=== PATIENT | female | born 2000 | race African-American/Black ===

== ENCOUNTER 2020-12-19 16:42 | Emergency (ER) | payer MEDICAID ==
[~2020-12-19] VITALS: Ht 175.3 cm; Wt 74.8 kg
[2020-12-19] MEDS ORDERED: IPRATROPIUM NEB FS 0.5 MG/2.5 ML AMPUL.NEB NEB ONE (18:00)
[2020-12-19] MEDS ORDERED: ALBUTEROL FS 2.5 MG/3 ML VIAL.NEB NEB ONE (18:00)
[2020-12-19] MEDS ORDERED: predniSONE 20 MG TABLET PO ONE (18:00)
--- NOTE | 2020-12-19 18:14 | NUR ---
COVID SWAB DONE AND SENT TO LAB
[2020-12-19] MEDS ORDERED: predniSONE 20 MG TABLET ONE (18:16)
--- NOTE | 2020-12-19 18:30 | NUR ---
BIBS FROM HOME TO ER BED 6. AAOX4. NOT IN RESP DISTRESS, BREATHING EVEN AND UNLABORED. AMBULATORY. CAME IN FOR SOB WHICH HAS BEEN GOING ON AND OFF FOR THE PAST MONTH. PT REPORTS THAT SHE HAVE ASTHMA AND HER INHALER IS NOT HELPING. PT IS NOTED WHEEZING. PROVIDER WAS AT THE BEDSIDE. ORDERS RECEIVED, NOTED AND CARRIED OUT.
[2020-12-19] MEDS ORDERED: ALBUTEROL FS 2.5 MG/3 ML VIAL.NEB ONE (18:31)
[2020-12-19] MEDS ORDERED: IPRATROPIUM NEB FS 0.5 MG/2.5 ML AMPUL.NEB ONE (18:31)
[2020-12-19] MEDS ORDERED: ALBU18HF2 INH (19:00)
[2020-12-19] MEDS ORDERED: CLOT15CR27 TP (19:00)
[2020-12-19] MEDS ORDERED: PRED20TA PO (19:00)
--- NOTE | 2020-12-19 19:16 | NUR ---
PT MARKED FOR DISCHARGE. JUST FINISHING BREATHING TREATMENT
--- NOTE | 2020-12-19 19:21 | NUR ---
Patient discharged to home in stable condition. Written and verbal after care instructions given. Patient verbalizes understanding of instruction. Pt ambulatory with a steady gait
[2020-12-19 19:24] VITALS: BP 113/63
== END 2020-12-19 19:24 | disposition home or self-care (01) ==
LOC: ER 16:46
DX: J45.909 Unspecified asthma, uncomplicated (principal); Z20.822 Contact with and (suspected) exposure to COVID-19; Z76.0 Encounter for issue of repeat prescription
CPT/HCPCS: 71045; 87426; 94644; 99285; C9803; J7512

== ENCOUNTER 2020-12-21 17:33 | Emergency (ER) | payer MEDICAID ==
[~2020-12-21] VITALS: Ht 167.6 cm; Wt 68.0 kg
[~2020-12-21 17:33] MED LIST: ALBU18HF2 INH; CLOT15CR27 TP; PRED20TA PO
[2020-12-21 17:43] VITALS: BP 116/85
[2020-12-21] MEDS ORDERED: DEXAMETHASONE SOD PHOSPHATE 10 MG/ML VIAL IV ONE (18:00)
[2020-12-21] MEDS ORDERED: IPRATROPIUM NEB FS 0.5 MG/2.5 ML AMPUL.NEB NEB ONE (18:00)
[2020-12-21] MEDS ORDERED: ALBUTEROL FS 2.5 MG/3 ML VIAL.NEB CONTNEB ONE (18:00)
[2020-12-21] MEDS ORDERED: Magnesium 1GM/D5W 100ML PREMIX 200 ML IV ONE (18:00)
[2020-12-21] MEDS ORDERED: ALBUTEROL FS 2.5 MG/3 ML VIAL.NEB ONE (18:04)
[2020-12-21] MEDS ORDERED: IPRATROPIUM NEB FS 0.5 MG/2.5 ML AMPUL.NEB ONE (18:04)
[2020-12-21] MEDS ORDERED: Magnesium 1GM/D5W 100ML PREMIX 100 ML IV ONE (18:12)
[2020-12-21] MEDS ORDERED: DEXAMETHASONE SOD PHOSPHATE 10 MG/ML VIAL ONE (18:12)
[2020-12-21] MEDS ORDERED: PRED20TA PO (19:45)
[2020-12-21] MEDS ORDERED: FLUT10.62 INH (19:45)
[2020-12-21] MEDS ORDERED: ALBU6.7H9 INH (19:45)
--- NOTE | 2020-12-21 19:54 | NUR ---
MD PRESCRIPTIONS HANDED OVER TO PT.
--- NOTE | 2020-12-21 19:56 | NUR ---
IV removed. Catheter intact and site benign. Pressure and 4x4 applied to site. No bleeding noted.
--- NOTE | 2020-12-21 20:12 | NUR ---
Patient discharged to home in stable condition,ambulatory with steady gait. Written and verbal after care instructions given. Patient verbalizes understanding of instruction.
== END 2020-12-21 20:17 | disposition home or self-care (01) ==
LOC: ER 17:40
DX: J45.901 Unspecified asthma with (acute) exacerbation (principal); Z79.899 Other long term (current) drug therapy; Z91.14 Patient's other noncompliance with medication regimen
CPT/HCPCS: 71045; 84703; 94644; 96365; 96375; 99285; J1100; J3475

== ENCOUNTER 2021-12-05 18:37 | Emergency (ER) | payer MEDICAID ==
[~2021-12-05] VITALS: Ht 172.7 cm; Wt 80.3 kg
[~2021-12-05 18:37] MED LIST changes: +ALBU6.7H9 INH; +FLUT10.62 INH
--- NOTE | 2021-12-05 19:00 | NUR ---
BIBS "I have asthma- Cough/feel SOB/tight pain in chest area". AMBULATORY, AAXO4, BREATHING EVEN AND UNLABORED SATURATING AT 95%RA
[2021-12-05] MEDS ORDERED: IPRATROPIUM NEB FS 0.5 MG/2.5 ML AMPUL.NEB NEB ONE (19:30)
[2021-12-05] MEDS ORDERED: predniSONE 20 MG TABLET PO ONE (19:30)
[2021-12-05] MEDS ORDERED: ALBUTEROL FS 2.5 MG/3 ML VIAL.NEB NEB ONE (19:30)
[2021-12-05] MEDS ORDERED: predniSONE 20 MG TABLET ONE (19:31)
[2021-12-05] MEDS ORDERED: ALBU18HF2 INH (20:03)
[2021-12-05] MEDS ORDERED: PRED20TA PO (20:03)
[2021-12-05] MEDS ORDERED: IPRATROPIUM NEB FS 0.5 MG/2.5 ML AMPUL.NEB ONE (20:12)
[2021-12-05] MEDS ORDERED: ALBUTEROL FS 2.5 MG/3 ML VIAL.NEB ONE (20:12)
--- NOTE | 2021-12-05 20:56 | NUR ---
Patient discharged to home in stable condition. Written and verbal after care instructions given. Patient verbalizes understanding of instruction.
[2021-12-05 20:57] VITALS: BP 115/70
== END 2021-12-05 20:58 | disposition home or self-care (01) ==
LOC: ER 19:22
DX: J45.909 Unspecified asthma, uncomplicated (principal); Z79.899 Other long term (current) drug therapy
CPT/HCPCS: 99283; 94640; J7512

== ENCOUNTER 2022-02-03 18:10 | Emergency (ER) | payer MEDICAID ==
[~2022-02-03] VITALS: Ht 177.8 cm; Wt 81.2 kg
[2022-02-03 18:33] VITALS: BP 108/52
[2022-02-03] MEDS ORDERED: IPRATROPIUM NEB FS 0.5 MG/2.5 ML AMPUL.NEB NEB ONE (19:00)
[2022-02-03] MEDS ORDERED: ALBUTEROL FS 2.5 MG/3 ML VIAL.NEB NEB ONE (19:00)
[2022-02-03] MEDS ORDERED: predniSONE 20 MG TABLET PO ONE (19:00)
--- NOTE | 2022-02-03 19:27 | NUR ---
CALLED RT FOR BREATHING TX
[2022-02-03] MEDS ORDERED: IPRATROPIUM NEB FS 0.5 MG/2.5 ML AMPUL.NEB ONE (19:32)
[2022-02-03] MEDS ORDERED: ALBUTEROL FS 2.5 MG/3 ML VIAL.NEB ONE (19:32)
[2022-02-03] MEDS ORDERED: PRED50TA PO (20:19)
[2022-02-03] MEDS ORDERED: ALBU6.7H9 INH (20:19)
[2022-02-03] MEDS ORDERED: predniSONE 20 MG TABLET ONE (20:34)
--- NOTE | 2022-02-03 20:37 | NUR ---
Patient discharged to home in stable condition. Written and verbal after care instructions given. Patient verbalizes understanding of instruction.
== END 2022-02-03 20:37 | disposition home or self-care (01) ==
LOC: ER 18:13
DX: J45.21 Mild intermittent asthma with (acute) exacerbation (principal); J45.909 Unspecified asthma, uncomplicated; Z88.0 Allergy status to penicillin; Z88.8 Allergy status to other drugs, medicaments and biological substances; Z79.899 Other long term (current) drug therapy
CPT/HCPCS: 99283; 94640; J7512

== ENCOUNTER 2022-03-02 20:01 | Emergency (ER) | payer MEDICAID ==
[~2022-03-02] VITALS: Ht 175.3 cm; Wt 81.2 kg
[~2022-03-02 20:01] MED LIST changes: +PRED50TA PO
--- NOTE | 2022-03-02 20:16 | NUR ---
TO ER BED 11. BIBS C/O INTERMITTENT CP SINCE 12PM RADIATES TO L ARM. PAIN IS DESCRIBES "TIGHTNESS". HAS NOT TAKEN OTC MEDS FOR RELIEF. PT STATES, "MAY BE DUE TO FASTING SHE WAS DOING FOR 4 DAYS". PT IS ALERT AND ORIENTED. RR EVEN AND NONLABORED. CONNECTED TO POX AND HEART MONITOR. VITAL SIGNS WITHIN LIMITS. AWAITING MD NGUYEN
[2022-03-02] MEDS ORDERED: ACETAMINOPHEN ES 500 MG TABLET ONE (20:42)
[2022-03-02] MEDS ORDERED: ACETAMINOPHEN ES 500 MG TABLET PO ONE (21:00)
[2022-03-02 22:36] VITALS: BP 125/76
--- NOTE | 2022-03-02 22:36 | NUR ---
Patient discharged to home in stable condition. Written and verbal after care instructions given. Patient verbalizes understanding of instruction.
== END 2022-03-02 22:37 | disposition home or self-care (01) ==
LOC: ER 20:03
DX: R07.9 Chest pain, unspecified (principal); J45.909 Unspecified asthma, uncomplicated; Z79.899 Other long term (current) drug therapy
CPT/HCPCS: 71045-TC

== ENCOUNTER 2022-03-12 14:00 | Emergency (ER) | payer MEDICAID ==
[~2022-03-12] VITALS: Ht 175.3 cm; Wt 81.2 kg
--- NOTE | 2022-03-12 15:11 | NUR ---
Patient came in to ther er c/o left sided chest pain. On room air, breathing evenly and unlabored. Kept comfortable, will continue to monitor accordingly.
[2022-03-12 15:48] LABS: BASOPHILS % (AUTO) 0.2 % (0.0-2.0); EOSINOPHILS % (AUTO) 4.1 % (0.0-6.0); HEMATOCRIT 41 % (33-45); HEMOGLOBIN 13.4 g/dL (11.5-14.8); LYMPHOCYTES # (AUTO) 1.5 K/uL (0.8-4.8); LYMPHOCYTES % (AUTO) 21.2 % (20.0-44.0); MEAN CORPUSCULAR HGB CONC 33 g/dl (31.0-36.0); MEAN CORPUSCULAR VOLUME 87 fL (82-100); MONOCYTES # (AUTO) 0.4 K/uL (0.1-1.30); MONOCYTES % (AUTO) 6.1 % (2.0-12.0); NEUTROPHILS % (AUTO) 68.4 % (43.0-81.0); PLATELET COUNT (AUTO) 225 K/uL (150-450); RED BLOOD CELL COUNT(AUTO) 4.71 MIL/uL (4.0-5.2); WHITE BLOOD COUNT (AUTO) 7.3 K/uL (4.3-11.0)
[2022-03-12 15:57] LABS: CALCIUM, SERUM 8.5 mg/dL (8.5-10.1); CARBON DIOXIDE 25 mmol/L (21-32); CHLORIDE 105 mmol/L (98-107); CREATININE 0.8 mg/dL (0.6-1.3); GLUCOSE 84 mg/dL (74-106); POTASSIUM 3.5 mmol/L (3.5-5.1); SODIUM SERUM 138 mmol/L (136-145); UREA NITROGEN, BLOOD 10 mg/dL (7-18)
[2022-03-12 17:53] VITALS: BP 110/66
--- NOTE | 2022-03-12 17:53 | NUR ---
Patient discharged to home in stable condition. Written and verbal after care instructions given. Patient verbalizes understanding of instruction.
== END 2022-03-12 17:53 | disposition home or self-care (01) ==
LOC: ER 15:13
DX: R20.2 Paresthesia of skin (principal); R07.89 Other chest pain; J45.909 Unspecified asthma, uncomplicated; Z88.0 Allergy status to penicillin; Z88.8 Allergy status to other drugs, medicaments and biological substances; Z79.899 Other long term (current) drug therapy
CPT/HCPCS: 36415; 71045-TC; 80048-TC; 84484-TC; 85025-TC

== ENCOUNTER 2022-06-20 00:05 | Emergency (ER) | payer MEDICAID ==
[~2022-06-20] VITALS: Ht 175.3 cm; Wt 81.2 kg
--- NOTE | 2022-06-20 01:55 | NUR ---
DR. EMERALD SMITH AT PT'S BEDSIDE
[2022-06-20] MEDS ORDERED: ACETAMINOPHEN ES 500 MG TABLET ONE (02:07)
--- NOTE | 2022-06-20 02:07 | NUR ---
GEOMETRICIAN AT PT'S BEDSIDE
--- NOTE | 2022-06-20 02:10 | NUR ---
alignment technician at bedside
[2022-06-20] MEDS ORDERED: ACETAMINOPHEN 325 MG TABLET PO ONE (02:30)
[2022-06-20 03:51] VITALS: BP 124/76
== END 2022-06-20 03:53 | disposition home or self-care (01) ==
LOC: ER 00:07
DX: R07.89 Other chest pain (principal); M54.12 Radiculopathy, cervical region; M62.838 Other muscle spasm; J45.909 Unspecified asthma, uncomplicated; Z79.899 Other long term (current) drug therapy; Z88.0 Allergy status to penicillin; Z88.1 Allergy status to other antibiotic agents
CPT/HCPCS: 71100-TC; 73010-TC

== ENCOUNTER 2022-07-28 22:41 | Emergency (ER) | payer MEDICAID ==
[~2022-07-28] VITALS: Ht 175.3 cm; Wt 80.3 kg
--- NOTE | 2022-07-29 00:16 | NUR ---
CALLED RT FOR BEATHING TX
[2022-07-29] MEDS ORDERED: IPRATROPIUM NEB FS 0.5 MG/2.5 ML AMPUL.NEB ONE (00:27)
[2022-07-29] MEDS ORDERED: ALBUTEROL FS 2.5 MG/3 ML VIAL.NEB ONE (00:27)
[2022-07-29] MEDS ORDERED: predniSONE 20 MG TABLET PO ONE (00:30)
[2022-07-29] MEDS ORDERED: IPRATROPIUM NEB FS 0.5 MG/2.5 ML AMPUL.NEB NEB ONE (00:30)
[2022-07-29] MEDS ORDERED: ALBUTEROL FS 2.5 MG/3 ML VIAL.NEB NEB ONE (00:30)
--- NOTE | 2022-07-29 00:43 | NUR ---
RT AT PT'S BEDSIDE FOR BREATHING TX
--- NOTE | 2022-07-29 00:52 | NUR ---
PT RECEIVED IN BED A/O X4, CALM, COOPERATIVE. CURRENTLY RECEIVING BREATHING TX WITH O2SAT OF 100%; PT DENIES SOB AT THE TIME. PER PT REPORT, SYMPTOMS HAPPENED WHILE SLEEPING AND WOULD SUDDENLY START COUGHING; NON-PRODUCTIVE COUGH. PT RECEIVED MODERNA X2 DOSES; NO FLU VACCINE.
[2022-07-29 00:55] VITALS: BP 121/74
[2022-07-29] MEDS ORDERED: predniSONE 20 MG TABLET ONE (01:01)
[2022-07-29] MEDS ORDERED: PRED20TA PO (02:38)
[2022-07-29] MEDS ORDERED: ALBU18HF2 INH (02:38)
--- NOTE | 2022-07-29 03:38 | NUR ---
PT PROVIDED WITH DISCHARGE SUMMARY AND NEW MEDICATIONS TO BE TAKEN AT HOME. PT VERBALIZED UNDERSTANDING OF TEACHINGS.
== END 2022-07-29 03:40 | disposition home or self-care (01) ==
LOC: ER 22:41
DX: J45.909 Unspecified asthma, uncomplicated (principal); Z79.899 Other long term (current) drug therapy; Z88.0 Allergy status to penicillin; Z88.1 Allergy status to other antibiotic agents
CPT/HCPCS: 99285; 94644; J7512